=== PATIENT | female | born 1945 | race Caucasian/White ===

== ENCOUNTER 2019-08-14 14:21 | Emergency (ER) | payer MEDICARE, OTHER ==
[~2019-08-14] VITALS: Ht 160 cm; Wt 77.1 kg
--- NOTE | 2019-08-14 15:23 | NUR ---
PT IS IN ROOM #2A. DR MILLER EVALUATED THE PT.
[2019-08-14] MEDS ORDERED: ACETAMINOPHEN ES 500 MG TABLET PO ONE (15:45)
[2019-08-14] MEDS ORDERED: ACETAMINOPHEN ES 500 MG TABLET ONE (16:53)
--- NOTE | 2019-08-14 16:54 | NUR ---
PT WAS D/C'd TO HOME. D/C INSTRUCTIONS GIVEN TO THE PT BY DR MILLER.
[2019-08-14 16:55] VITALS: BP 132/77
== END 2019-08-14 16:56 | disposition home or self-care (01) ==
LOC: ER 14:21
DX: M25.512 Pain in left shoulder (principal); E78.5 Hyperlipidemia, unspecified; Z79.899 Other long term (current) drug therapy
CPT/HCPCS: 73030; 93005; A4663; A9150